=== PATIENT | male | born 1975 | race Caucasian/White ===

== ENCOUNTER 2016-10-26 19:21 | Emergency (ER) | payer OTHER ==
[~2016-10-26] VITALS: Ht 185.4 cm; Wt 86.0 kg
[2016-10-26 19:23] VITALS: TEMP 37.3; Ht 185.4 cm; Wt 86.0 kg
[2016-10-26] MEDS ORDERED: DIAZEPAM 5MG TAB PO STA (19:35)
[2016-10-26] MEDS ORDERED: KETOROLAC TROMETHAMINE 60 MG/2 ML VIAL IM STA (19:35)
[2016-10-26] MEDS ORDERED: IBUP-103 PO (19:38)
[2016-10-26] MEDS ORDERED: FLEXERIL HOME PACK 10 MG VIAL PO ONE (20:15)
[2016-10-26] MEDS ORDERED: NORCO 5/325MG HOME PACK PO ONE (20:15)
[2016-10-26] MEDS ORDERED: CYCL10TA6 PO (20:16)
[2016-10-26] MEDS ORDERED: HYDR-5688 PO (20:16)
--- NOTE | 2016-10-26 20:17 | EMERGENCY ROOM VISIT NOTE ---
ED Visit Note First contact with patient: 19:28 CHIEF COMPLAINT: Back pain HISTORY OF PRESENT ILLNESS: This 40-year-old male patient presents to the emergency department ambulatory complaining of pain in the back. The patient reports that 2 weeks ago, he pulled a muscle in the right side of his back. He reports that he has had pain in the right side of his ribs on and off since then. He states that today, he sneezed and the muscles in his right ribs felt like they spasmed. He has had severe pain rated a 9/10 in the right side of his mid back. He reports that he took an pain medication from a previous surgery at home without relief of the pain. The pain worsens with any movement. He denies any chest pain or shortness of breath. He denies any abdominal pain, nausea or vomiting. There is no radiation of the pain. REVIEW OF SYSTEMS: A review of systems was performed with positives and pertinent negatives listed in the history of present illness. All other systems were reviewed and are negative. ALLERGIES: No known drug allergies MEDICATIONS: No chronic medications PMH: No significant past medical history. SOCIAL HISTORY: The patient lives locally with family. PHYSICAL EXAM: VITALS: Vitals are noted on the nurse's note and reviewed by myself. Vital signs stable. GENERAL: This is a 40-year-old male, in no acute distress, nondiaphoretic, well- developed well-nourished. SKIN: The skin was without rashes, erythema, edema, or bruising. Capillary refill less than 2 seconds. NECK: Supple without nuchal rigidity. No cervical spine tenderness. No paraspinous muscle tenderness. HEART: Regular rate and rhythm without murmurs gallops or rubs. LUNGS: Clear to auscultation bilaterally without wheezes, rales or rhonchi. ABDOMEN: Positive bowel sounds x 4. Normal tympanic percussion. Soft, nontender, without masses or organomegaly. Núñez sign negative. MUSCULOSKELETAL: No muscle atrophy, erythema, or edema noted of the back. There is tenderness and palpable spasm of the right thoracic paraspinous muscles. No tenderness over the spinous processes. Full range of motion of bilateral upper and lower extremities. NEURO: Patient was alert and oriented to person place and time. Normal sensation to light and sharp touch. Deep tendon reflexes 2+ in the lower extremities. Dorsalis pedis pulse 2+ bilaterally. Strength 5/5 and equal in the bilateral lower extremities. EMERGENCY DEPARTMENT COURSE: The patient was evaluated as above. He appears to have a thoracic muscle spasm. The patient was given a 10 mg dose of Valium and 60 mg Toradol IM. This provided the patient with significant relief of his pain. He will be discharged home with Flexeril and [place]. The [place] prescription drug monitoring program was queried and no red flags were identified. The patient was instructed to follow-up with his primary care provider. Conservative measures were discussed. The patient verbalized understanding of my assessment and treatment plan and was discharged home in good condition and pain-free. DIAGNOSIS: Thoracic muscle spasm Current/Historical Medications Scheduled Cyclobenzaprine Hcl (Flexeril), 10 MG PO TID Scheduled PRN Hydrocodone/Acetaminophen 5MG/325MG ([place] 5MG/325MG), 1-2 TABLET PO Q4H PRN for Pain Ibuprofen Tab (Advil), 400-600 MG PO Q6H PRN for Pain Allergies Coded Allergies: No Known Allergies (Verified Allergy, Mild, 07/07/07) Vital Signs Date Time Temp Pulse Resp B/P Pulse Ox O2 Delivery O2 Flow Rate FiO2 10/26/16 20:30 78 18 138/76 95 10/26/16 19:23 37.3 82 18 169/113 98 Room Air Medications Administered Medications (Trade) Dose Ordered Sig/[place] Route Start Time Stop Time Status Last Admin Dose Admin Ketorolac Tromethamine (Toradol Inj) 60 mg NOW STAT IM 10/26/16 19:35 10/26/16 19:37 DC 10/26/16 19:42 60 MG Diazepam (Valium Tab) 10 mg NOW STAT PO 10/26/16 19:35 10/26/16 19:37 DC 10/26/16 19:41 10 MG Cyclobenzaprine HCl (FLEXERIL 10MG Home Pack) 1 homepack UD ONCE PO 10/26/16 20:15 10/26/16 20:16 DC 10/26/16 20:26 1 HOMEPACK Acetaminophen/ Hydrocodone Bitart ([place] 5/325mg Home Pack) 1 homepack UD ONCE PO 10/26/16 20:15 10/26/16 20:16 DC 10/26/16 20:26 1 HOMEPACK Departure Information Impression Primary Impression: Spasm of thoracic back muscle Dispostion Home / Self-Care Condition GOOD Prescriptions Hydrocodone/Acetaminophen 5MG/325MG ([place] 5MG/325MG) Tab 1-2 TABLET PO Q4H Y for Pain, #15 TAB For Initial Treatment Prov: Juju Pineda PA-C 10/26/16 Cyclobenzaprine Hcl (FLEXERIL) 10 Mg Tab 10 MG PO TID for 5 Days, #15 TAB Prov: Juju Pineda PA-C 10/26/16 Referrals No Doctor, Assigned (PCP) Patient Instructions My [facility] Additional Instructions You have been treated in the Emergency Department for Back Pain. You have received pain medicine in the emergency department which impairs your ability to operate a vehicle. It is illegal for you to drive after receiving these medicines. You have been prescribed [place] to be used for pain control. This is a narcotic medication. You cannot drive or consume alcohol while on this medicine. This medicine should only be used for pain that cannot be controlled with over-the- counter pain medicines. You have been prescribed Flexeril (cyclobenzaprine) 1-2 tabs orally, three times per day. Do NOT exceed 30 mg (6 tabs) per day. Take your first dose at bedtime as it can make you drowsy. Always take all medications as prescribed. For pain control, you can use the following [id number] medicines (if >12 yo): - Regular strength (325mg/tab) Tylenol (acetaminophen) 2 tabs every 4-6 hours as needed. Do not exceed 12 tablets in a 24 hour period. Avoid taking more than 4 grams (4000 mg) of Tylenol per day. This includes any other sources of acetaminophen you may take on a regular basis. - Regular strength (200 mg/tab) Advil (ibuprofen) 1-2 tabs every 4-6 hours as needed. Do not exceed a dose of 3200 mg per day. A heating pad can be used over the area for continued soothing relief. You should schedule a follow-up appointment in 2-3 days with your Primary Care Provider for further evaluation and treatment of your back pain. Return to the Emergency Department if your current symptoms worsen despite treatment course outlined above, or if you develop any of the following symptoms : intractable pain despite aforementioned treatment course, loss of control of your bowel or bladder, numbness or tingling in your groin, or development of a fever.
[2016-10-26 20:30] VITALS: BP 138/76; PULSE 78; O2SAT 95
== END 2016-10-26 20:30 | disposition home or self-care (01) ==
LOC: C.EDB 19:22 → C.EDD 20:30
DX: M62.830 Muscle spasm of back (principal)